=== PATIENT | male | born 1990 | race Caucasian/White ===

== ENCOUNTER 2017-10-22 00:02 | Emergency (ER) | payer SELFPAY ==
[2017-10-22 00:05] VITALS: BP 149/83; PULSE 84; RESP 16; TEMP 98.2; O2SAT 98
[2017-10-22 00:31] VITALS: BP 139/68; PULSE 69; RESP 14; O2SAT 99
[2017-10-22 02:00] LABS: AUTOMATED NEUTROPHIL # 3.7 TH/MM3 (1.8-7.7); BASOPHIL # 0.1 TH/MM3 (0-0.2); BASOPHIL % 0.9 % (0.0-2.0); EOSINOPHIL # 0.1 TH/MM3 (0-0.4); EOSINOPHIL % 0.7 % (0.0-4.0); HEMATOCRIT 50.4 % (39.0-51.0); HEMOGLOBIN 17.5 GM/DL (13.0-17.0); LYMPHOCYTE # 2.8 TH/MM3 (1.0-4.8); MEAN CELL VOLUME 91.8 FL (80.0-100.0); MEAN CORPUSCULAR HEMOGLOBIN 31.8 PG (27.0-34.0); MEAN CORPUSCULAR HGB CONC 34.6 % (32.0-36.0); MEAN PLATELET VOLUME 8.6 FL (7.0-11.0); MONO % 8.3 % (0.0-8.0); MONOCYTE # 0.6 TH/MM3 (0-0.9); NEUT % 51.1 % (16.0-70.0); PLATELET COUNT 204 TH/MM3 (150-450); RED BLOOD COUNT 5.49 MIL/MM3 (4.50-5.90); RED CELL DISTRIBUTION WIDTH 13.6 % (11.6-17.2); WHITE BLOOD COUNT 7.2 TH/MM3 (4.0-11.0)
[2017-10-22 02:09] LABS: BILIRUBIN, URINE NEG (NEG); BLOOD, URINE MOD (NEG); GLUCOSE,URINE NEG (NEG); KETONE, URINE NEG (NEG); MUCUS URINE FEW /lpf (OCC); NITRITE,URINE NEG (NEG); SQUAMOUS EPITHELIAL CELL URINE 1 /hpf (0-5); URINE COLOR YELLOW (YELLW/STRAW); URINE LEUKOCYTE ESTERASE NEG (NEG)
--- NOTE | 2017-10-22 02:32 | RADRPT ---
EXAM DATE: 10/22/2017 2:18 AM EDT AGE/SEX: 27 years / Male INDICATIONS: Unable to urinate. CLINICAL DATA: This is the patient's initial encounter. Patient reports that signs and symptoms have been present for 1 day and indicates a pain score of 0/10. MEDICAL/SURGICAL HISTORY: None. None. RADIATION DOSE: 11.69 CTDI (mGy) COMPARISON: No prior exams available for comparison. TECHNIQUE: Multiple contiguous axial images were obtained through the abdomen. Images were obtained using multiple row detector helical technique. Using dose reduction techniques, radiation dose was ke pt as low as reasonably achievable to obtain optimal diagnostic quality images. FINDINGS: Lower Lungs: The visualized lower lungs are clear. Liver: The liver has a homogeneous density without space-occupying lesion. There is no dilation of th e biliary tree. Spleen: Homogeneous density without enlargement. Pancreas: Unremarkable without mass or calcification. Kidneys: Normal in size and shape. No evidence of mass or hydronephrosis. No renal calculi. Adrenal Glands: Unremarkable. Aorta: The aorta and proximal iliac vessels are grossly unremarkable without aneurysmal dilation. Bowel/Mesentery: The bowel loops are grossly unremarkable. The cecum and sigmoid colon have a normal configuration. Abdominal Wall: Intact. Retroperitoneum: No evidence of adenopathy in the retrocrural, para-aortic, or deep pelvic regions. Bladder: Contours are smooth. Reproductive Organs: No abnormal masses or calcifications seen. Inguinal: The inguinal region is unremarkable without evidence of adenopathy. Bony Structures: Unremarkable. CONCLUSION: 1. No renal calculi or hydronephrosis. 2. Urinary bladder appears unremarkable. Electronically signed by: Cecil Villela MD 10/22/2017 2:30 AM EDT
[2017-10-22] MEDS ORDERED: oxyCODONE/ACETAMINOPHEN 5 MG/325 MG TAB PO ONE (02:45)
[2017-10-22 02:52] LABS: BICARBONATE 27.9 MEQ/L (21.0-32.0); CALCIUM 9.3 MG/DL (8.5-10.1); CREATININE 1.41 MG/DL (0.60-1.30)
[2017-10-22] MEDS ORDERED: SODIUM CHLOR 0.9% 1000 ML INJ 1,000 ML IV ONE ×2 (03:00)
[2017-10-22 05:50] LABS: BICARBONATE 28.3 MEQ/L (21.0-32.0); CALCIUM 8.4 MG/DL (8.5-10.1); CREATININE 1.45 MG/DL (0.60-1.30)
--- NOTE | 2017-10-22 06:59 | PD ---
HPI Chief Complaint: Abdominal Pain Time Seen by Provider: 01:24 Travel History International Travel<30 days: No Contact w/Intl Traveler<30days: No Traveled to known affect area: No History of Present Illness HPI patient presents with difficulty urinating and dysuria. no priors only a few hours since his last urination. PFSH Past Medical History Medical History: Denies Significant Hx Diminished Hearing: No Past Surgical History Surgical History: No Previous Surgery Social History Alcohol Use: No Tobacco Use: No Substance Use: No Allergies-Medications (Allergen,Severity, Reaction): Coded Allergies: No Known Allergies (Unverified , 10/22/17) Reported Meds & Prescriptions Reported Meds & Active Scripts Active Percocet (Oxycodone-Acetaminophen) 5-325 mg Tab 1 Tab PO Q8HR PRN Review of Systems Except as stated in HPI: all other systems reviewed are Neg Genitourinary: Positive: Dysuria Physical Exam Narrative GENERAL: well appear male in minimal distress SKIN: Warm and dry. HEAD: Atraumatic. Normocephalic. EYES: Pupils equal and round. No scleral icterus. No injection or drainage. ENT: No nasal bleeding or discharge. Mucous membranes pink and moist. NECK: Trachea midline. No JVD. CARDIOVASCULAR: Regular rate and rhythm. RESPIRATORY: No accessory muscle use. Clear to auscultation. Breath sounds equal bilaterally. GASTROINTESTINAL: Abdomen soft, non-tender, nondistended. Hepatic and splenic margins not palpable. MUSCULOSKELETAL: Extremities without clubbing, cyanosis, or edema. No obvious deformities. PSYCHIATRIC: Anxious Data Data Last Documented VS Vital Signs Date Time Temp Pulse Resp B/P (MAP) Pulse Ox O2 Delivery O2 Flow Rate FiO2 10/22/17 07:31 10/22/17 00:31 69 14 99 Room Air 10/22/17 00:[address] Abd/Pel W/O Iv Contrast (10/22/17 ) Complete Blood Count With Diff (10/22/17 01:31) Basic Metabolic Panel (Bmp) (10/22/17 01:31) Urinalysis - C+S If Indicated (10/22/17 01:31) Oxycodone-Acetamin 5-325 Mg (Percocet (10/22/17 02:45) Sodium Chlor 0.9% 1000 Ml Inj (Ns 1000 M (10/22/17 03:00) Sodium Chlor 0.9% 1000 Ml Inj (Ns 1000 M (10/22/17 03:00) Basic Metabolic Panel (Bmp) (10/22/17 04:02) Ed Discharge Order (10/22/17 07:03) Labs Laboratory Tests Test 10/22/17 01:45 10/22/17 01:50 10/22/17 05:10 Urine Color YELLOW Urine Turbidity HAZY Urine pH 6.0 Urine Specific [place] 1.016 Urine Protein NEG mg/dL Urine Glucose (UA) NEG mg/dL Urine Ketones NEG mg/dL Urine Occult Blood MOD Urine Nitrite NEG Urine Bilirubin NEG Urine Urobilinogen LESS THAN 2 mg/dL Urine Leukocyte Esterase NEG Urine RBC 15 /hpf Urine WBC 2 /hpf Urine Squamous Epithelial Cells 1 /hpf Urine Mucus FEW /lpf Microscopic Urinalysis Comment CULT NOT INDICATED White Blood Count 7.2 TH/MM3 Red Blood Count 5.49 MIL/MM3 Hemoglobin 17.5 GM/DL Hematocrit 50.4 % Mean Corpuscular Volume 91.8 FL Mean Corpuscular Hemoglobin 31.8 PG Mean Corpuscular Hemoglobin Concent 34.6 % Red Cell Distribution Width 13.6 % Platelet Count 204 TH/MM3 Mean Platelet Volume 8.6 FL Neutrophils (%) (Auto) 51.1 % Lymphocytes (%) (Auto) 39.0 % Monocytes (%) (Auto) 8.3 % Eosinophils (%) (Auto) 0.7 % Basophils (%) (Auto) 0.9 % Neutrophils # (Auto) 3.7 TH/MM3 Lymphocytes # (Auto) 2.8 TH/MM3 Monocytes # (Auto) 0.6 TH/MM3 Eosinophils # (Auto) 0.1 TH/MM3 Basophils # (Auto) 0.1 TH/MM3 CBC Comment DIFF FINAL Differential Comment Blood Urea Nitrogen 17 MG/DL 15 MG/DL Creatinine 1.41 MG/DL 1.45 MG/DL Random Glucose 94 MG/DL 108 MG/DL Calcium Level 9.3 MG/DL 8.4 MG/DL Sodium Level 140 MEQ/L 142 MEQ/L Potassium Level 3.7 MEQ/L 3.8 MEQ/L Chloride Level 103 MEQ/L 106 MEQ/L Carbon Dioxide Level 27.9 MEQ/L 28.3 MEQ/L Anion Gap 9 MEQ/L 8 MEQ/L Estimat Glomerular Filtration Rate 61 ML/MIN 59 ML/MIN [facility] Medical Decision Making Medical Screen Exam Complete: Yes Emergency Medical Condition: Yes Differential Diagnosis dysuria Narrative Course patient was seen and evaulated. His creatinine was mildly elevated and only marginally improved with fluids. Patient is referred to Dr Ott (Urology) for follow Diagnosis Primary Impression: Dysuria Additional Impression: Renal insufficiency Referrals: Rito Ott MD Med/Other Pt SpecificInfo: Prescription(s) given Scripts Oxycodone-Acetaminophen (Percocet) 5-325 mg Tab 1 TAB PO Q8HR Y for PAIN, #12 TAB 0 Refills Prov: Joann Palmer DO 10/22/17 Disposition: 01 DISCHARGE HOME Condition: Good Joann Palmer DO Oct 22, 2017 06:59
[2017-10-22] MEDS ORDERED: PERC5TAB12 PO (07:01)
== END 2017-10-22 07:33 | disposition home or self-care (01) ==
LOC: NEPC 00:02
DX: R30.0 Dysuria (principal); N28.9 Disorder of kidney and ureter, unspecified
CPT/HCPCS: 74176; 80048; 81001; 85025; 96360; 99284; J7030